=== PATIENT | male | born 1950 | race Caucasian/White ===

== ENCOUNTER → 2018-09-25 09:41 | Outpatient (CLI) | payer OTHER, SELFPAY ==
--- NOTE | 2018-09-25 | DI.CT.S_ITS ---
PROCEDURE: CT CHEST ABD PEL W CON INDICATIONS: NEOPLASM TECHNIQUE: After the administration of oral and intravenous contrast, 5 mm thick sections acquired from the lung apices to the symphysis. 5 mm coronal and sagittal reformats were performed, with additional 7 mm coronal MIP reformats through the lungs. For radiation dose reduction, the following was used: automated exposure control, adjustment of mA and/or kV according to patient size. COMPARISON: None. FINDINGS: Image quality: Excellent. CHEST: Lungs and pleura: No acute airspace opacities. No pleural effusions or pneumothorax. Central and peripheral airways appear patent and normal in caliber. Mediastinum: Heart size is normal. No pericardial effusion. No mediastinal or hilar adenopathy by size criteria. Thoracic aorta and central pulmonary arteries are normal in size. Esophagus is normal in caliber. No hiatal hernia. Chest wall: No axillary or supraclavicular adenopathy by size criteria. Thyroid gland appears normal. ABDOMEN: Solid organs: Liver is normal in size and enhancement. Gallbladder appears normal. Biliary system is non dilated. Pancreas enhances normally. Spleen is normal in size and enhancement. No adrenal nodules. Kidneys demonstrate normal size and enhancement, without hydronephrosis. Peritoneum and bowel: Bowel loops demonstrate normal wall thickness and caliber. No free fluid or air. Nodes and vessels: No retroperitoneal or mesenteric adenopathy by size criteria. Aorta and inferior vena cava are normal in size. Miscellaneous: No ventral hernias. PELVIS: Genitourinary: Bladder wall thickness is normal. Miscellaneous: No inguinal hernias or adenopathy. Postsurgical changes are present along the pelvic sidewalls and morphology in the prostate fossa region suggest prior total prostatectomy. No mass lesion or adjacent adenopathy is seen. Note is made of nearby sigmoid diverticulosis but without acute diverticulitis. Bones: No suspicious bony lesions. No vertebral body compression fractures. IMPRESSION: Apparent prior prostatectomy. The urinary tract visualized shows no evidence of underlying infection or neoplasm. No metastatic disease is found. Dictated by: Mike Yang M.D. on 09/25/2018 at 14:24 Approved by: Mike Yang M.D. on 09/25/2018 at 14:32
[2018-09-25 10:37] LABS: Estimated Glomerular Filt Rate > 60.0 mL/min (>60)
== END ==
PROVIDERS: Visit Provider Urology
DX: D49.59 Neoplasm of unspecified behavior of other genitourinary organ (principal)
CPT/HCPCS: 36415; 71260; 74177; 82565; Q9967

== ENCOUNTER → 2018-09-30 09:34 | Outpatient (CLI) | payer OTHER, SELFPAY ==
--- NOTE | 2018-09-30 | DI.NM.S_ITS ---
PROCEDURE: [place] BONE SCAN WHOLE BODY RADIOPHARMACEUTICAL: 19.2 mCi Tc-99m MDP IV. INDICATIONS: NEOPLASM OF OTHER GENITAL URINARY ORGANS TECHNIQUE: Delayed whole-body scintigrams were obtained approximately 3-4 hours after intravenous injection of radiotracer. Anterior and posterior views were acquired from vertex to feet. Additional left and right oblique views of the rib cage were obtained. COMPARISON: [facility], CT, CT CHEST ABD PEL W CON, 09/25/2018, 10:48. FINDINGS: There is a small focus of mildly increased uptake in the right eighth rib, correlating with CT finding of an old fracture. There is a subtle focal uptake in the right mid fibular shaft. Foci of mildly increased uptake in maxilla and mandible are present, presumably related to dental disease. No lesions are identified in skull, sternum, clavicles, scapulae, bony pelvis, and visualized shafts of the long bones. There is increased uptake in cervical, lower thoracic spine and lower lumbar spine with distribution indistinguishable from degenerative disc and facet disease; early metastasis to spine could be obscured by degenerative changes. There are foci of increased periarticular activity involving shoulders bilaterally, sternoclavicular joints bilaterally, hands bilaterally, right knee and both feet, compatible with degenerative/arthritic changes. There is normal soft tissue uptake. IMPRESSION: 1. Subtle increased uptake in the mid right fibular shaft, which may be related to old trauma. Recommend radiographic correlation. 2. Focal uptake projecting to the posterior right eighth rib correlating with an old right rib fracture seen on CT. 3. No definitive scintigraphic evidence for osseous metastatic disease. Dictated by: Demi Contreras M.D. on 09/30/2018 at 15:41 Approved by: Demi Contreras M.D. on 09/30/2018 at 16:03
== END ==
PROVIDERS: PCP Family Medicine; Visit Provider Urology
DX: D49.59 Neoplasm of unspecified behavior of other genitourinary organ (principal); Z85.46 Personal history of malignant neoplasm of prostate
CPT/HCPCS: 78306; A9503

== ENCOUNTER → 2018-10-13 11:10 | Outpatient (CLI) | payer OTHER, SELFPAY ==
--- NOTE | 2018-10-13 | DI.CT.S_ITS ---
PROCEDURE: CT HEAD/BRAIN WO CON INDICATIONS: PROSTATE CANCER TECHNIQUE: Noncontrast 4.5 mm thick angled axial sections acquired from the foramen magnum to the vertex, with coronal and sagittal reformats. For radiation dose reduction, the following was used: automated exposure control, adjustment of mA and/or kV according to patient size. COMPARISON: [place], [place], [place] BONE SCAN WHOLE BODY, 09/30/2018, 13:06. FINDINGS: Image quality: Excellent. CSF spaces: Basal cisterns are patent. No extra-axial fluid collections. The ventricles are symmetric in size and shape. Brain: No intracranial bleeds or masses. There is cerebral volume loss for age, with resultant ventricular and sulcal prominence. There are periventricular and deep white matter chronic small vessel ischemic changes. There is intracranial internal carotid artery atherosclerosis. Skull and face: In this patient with this given history, scrutiny is given to the right supraorbital region, at the site of increased radiotracer uptake seen on the recent nuclear medicine bone scan. Within the right superolateral orbital roof, there is mild sclerosis seen, which is best demonstrated on series 4 image 25. Calvarium and visualized facial bones appear intact, without suspicious lesions. Sinuses: Visualized sinuses and mastoids are clear. IMPRESSION: A mild focus of sclerosis is seen corresponding to the area of increased radiotracer uptake on the recent nuclear medicine bone scan. The patient gives an additional history of a fracture near this region and this may simply relate to a remodeling fracture, although differential diagnosis includes metastatic disease in this patient with a given history of prostate cancer. Please correlate with patient history and any relevant outside imaging through the region. Dictated by: Olivier Anderson M.D. on 10/13/2018 at 11:19 Approved by: Olivier Anderson M.D. on 10/13/2018 at 11:23
== END ==
PROVIDERS: PCP Family Medicine; Visit Provider Urology
DX: C61 Malignant neoplasm of prostate (principal)
CPT/HCPCS: 70450

== ENCOUNTER → 2020-06-25 10:07 | Outpatient (CLI) | payer OTHER, SELFPAY ==
[2020-06-25 10:52] LABS: Add Manual Diff / Slide Review NO; Basophils Absolute Auto 100 /uL (0-100); Basophils Percent Auto 0.7 % (0-2); Eosinophils Absolute Auto 100 /uL (0-450); Eosinophils Percent Auto 1.6 % (2-4); Hematocrit 41.5 % (41-53); Lymphocytes Absolute Auto 1200 /uL (1100-4500); Lymphocytes Percent Auto 15.4 % (25-40); Mean Corpuscular HGB Conc 33.8 % (30-36); Mean Corpuscular Hemoglobin 30.6 PG (26-34); Mean Corpuscular Volume 90.6 fL (80-100); Monocytes Absolute Auto 1100 /uL (0-900); Monocytes Percent Auto 13.5 % (3-14); Neutrophils Absolute Auto 5400 /uL (1500-7000); Neutrophils Percent Auto 68.8 % (50-75); Platelet Count 225 X10^3/uL (150-400); Red Blood Cell Count 4.58 X10^6/uL (4.5-5.9); Red Cell Distribution Width 14.1 % (11.6-14.8); White Blood Cell Count 7.9 X10^3/uL (4.5-11.0)
[2020-06-25 11:01] LABS: Alanine Aminotransferase 32 IU/L (<50); Albumin 4.4 g/dL (3.5-5.0); Albumin Globulin Ratio 1.3 (1.0-2.8); Alkaline Phosphatase 84 U/L (38-126); Aspartate Aminotransferase 37 IU/L (17-59); BUN Creatinine Ratio 15.4 (6-22); Bilirubin Total 0.6 mg/dL (0.2-1.3); Blood Urea Nitrogen 20 mg/dL (9-20); Calcium 9.6 mg/dL (8.4-10.2); Carbon Dioxide 24 mmol/L (22-32); Chloride 105 mmol/L (98-107); Estimated Glomerular Filt Rate 54.7 mL/min (>60); Globulin 3.3 g/dL (1.7-4.1); Glucose 97 mg/dL (80-110); HEMOLYSIS < 15 (0-50); Potassium 3.9 mmol/L (3.4-5.1); Sodium 137 mmol/L (137-145); Total Protein 7.7 g/dL (6.3-8.2)
[2020-06-25 11:35] LABS: Prostate Specific Antigen 4.99 ng/mL (0.10-4.00)
== END ==
PROVIDERS: PCP Family Medicine; Referring Provider Internal Medicine Hematology & Oncology; Visit Provider Internal Medicine Hematology & Oncology
DX: C61 Malignant neoplasm of prostate (principal)
CPT/HCPCS: 36415; 80053; 84153; 85025

== ENCOUNTER → 2020-12-31 12:12 | Outpatient (CLI) | payer OTHER, SELFPAY ==
--- NOTE | 2020-12-31 | DI.RAD.S_ITS ---
PROCEDURE: XR CHEST 2V INDICATIONS: J45.991, cough variant asthma TECHNIQUE: 2 views of the chest were acquired. COMPARISON: [facility], CT, CT CHEST ABD PEL W CON, 09/25/2018, 10:48. FINDINGS: Surgical changes and devices: None. Lungs and pleura: Lungs are clear. No pleural effusions or pneumothorax. Mediastinum: Mediastinal contours are normal. Heart size is normal. Bones and chest wall: No suspicious bony abnormalities. Soft tissues appear unremarkable. IMPRESSION: Unremarkable chest plain films, with no focal infiltrates seen. Dictated by: Olivier Anderson M.D. on 12/31/2020 at 12:49 Approved by: Olivier Anderson M.D. on 12/31/2020 at 12:50
== END ==
PROVIDERS: PCP Family Medicine; Referring Provider Family Medicine; Visit Provider Family Medicine
DX: J45.991 Cough variant asthma (principal)
CPT/HCPCS: 71046

== ENCOUNTER → 2021-06-07 10:44 | Outpatient (CLI) | payer OTHER, SELFPAY ==
--- NOTE | 2021-06-07 11:11 | DI.CT.S_ITS ---
PROCEDURE: CT ABDOMEN PELVIS W CON INDICATIONS: prostate cancer TECHNIQUE: After the administration of oral and intravenous contrast, axial sections were acquired from the lung bases to the pubic symphysis. Coronal and sagittal reformats were performed. For radiation dose reduction, the following was used: automated exposure control, adjustment of mA and/or kV according to patient size. COMPARISON:None. FINDINGS: Image quality: Excellent. Lung bases: Lung bases are clear. Heart size is normal. Solid organs: Liver: The liver has no mass or intrahepatic biliary ductal dilatation. The portal vein and hepatic veins are patent. Biliary: The gallbladder has no gallstones, pericholecystic fluid, gallbladder wall thickening, or surrounding inflammatory change. Pancreas: The pancreas has no mass or ductal dilatation. There is no surrounding inflammation. Spleen: Normal size. There are no masses. Adrenals: No hypertrophy or nodules. Kidneys: No obstructive calculus or hydronephrosis. No solid mass. No cystic mass. Peritoneum and bowel: There is a small hiatal hernia. The distal esophagus and stomach are normal. The small bowel has a normal caliber and appearance. The terminal ileum is normal. The large bowel has diverticulosis with no evidence of diverticulitis. The appendix is normal. No free fluid or air. Nodes and vessels: No retroperitoneal or mesenteric adenopathy by size criteria. The aorta has atherosclerosis with no aneurysmal dilatation. Miscellaneous: No abdominal wall mass or hernia. PELVIS: Genitourinary: The bladder has no wall thickening or mass. Status post prostatectomy. There are surgical clips in the pelvis. 1 of the surgical clips is between the bladder in the base of the penis where the patient reports a sharp pain. No evidence of local recurrence disease in the pelvis. Miscellaneous: No inguinal hernias or adenopathy. Bones: Degenerative changes of L4-5 and L5-S1. 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 No vertebral body compression fractures. IMPRESSION: 1. Postoperative changes of prostatectomy with no evidence of locally recurrent neoplasm. 2. No osseous metastatic disease identified. Consider bone scan. Dictated by: Anthony Rosales M.D. on 06/07/2021 at 12:46 Approved by: Anthony Rosales M.D. on 06/07/2021 at 12:56
== END ==
PROVIDERS: PCP Family Medicine; Referring Provider Internal Medicine Hematology & Oncology; Visit Provider Internal Medicine Hematology & Oncology
DX: C61 Malignant neoplasm of prostate (principal); K44.9 Diaphragmatic hernia without obstruction or gangrene; M47.816 Spondylosis without myelopathy or radiculopathy, lumbar region; M47.817 Spondylosis without myelopathy or radiculopathy, lumbosacral region; M43.17 Spondylolisthesis, lumbosacral region
CPT/HCPCS: 74177

== ENCOUNTER → 2021-06-29 12:48 | Outpatient (CLI) | payer OTHER, SELFPAY ==
--- NOTE | 2021-06-29 12:51 | DI.NM.S_ITS ---
PROCEDURE: [place] BONE SCAN WHOLE BODY RADIOPHARMACEUTICAL: 20.3 mCi Tc-99m MDP IV. INDICATIONS: prostat cancer, pelvic pain TECHNIQUE: Delayed whole-body scintigrams were obtained approximately 3-4 hours after intravenous injection of radiotracer. Anterior and posterior views were acquired from vertex to feet. COMPARISON: [facility], CT, CT HEAD/BRAIN WO CON, 10/13/2018, 11:27. [facility], [place], [place] BONE SCAN WHOLE BODY, 09/30/2018, 13:06. [facility], MR, MR PELVIS WO/W CON, 06/29/2021, 14:46. [facility], CT, CT ABDOMEN PELVIS W CON, 06/07/2021, 11:43. FINDINGS: There is increased uptake inferior to the left orbit, new. Mildly increased uptake is also seen in the area superior right orbit, unchanged. Increased activity in the maxilla and mandible is likely related to dental disease. No lesions are identified in calvarium, sternum, clavicles, scapulae, ribs, bony pelvis, and visualized shafts of the long bones. There is low level increased uptake in cervical, thoracic and lumbar spine with distribution indistinguishable from degenerative disc and facet disease; early metastasis to spine could be obscured by degenerative changes. Multiple foci of increased uptake are seen at the costovertebral junctions bilaterally, likely related to costovertebral arthritis. IMPRESSION: 1. There is increased uptake in the inferior to the left orbit, new since the last exam. Recommend radiographic correlation. 2. Elsewhere, no definitive scintigraphic findings to suggest osseous metastasis. Dictated by: Demi Contreras M.D. on 06/29/2021 at 17:11 Approved by: Demi Contreras M.D. on 06/29/2021 at 17:26
--- NOTE | 2021-06-29 14:01 | DI.MRI.S_ITS ---
PROCEDURE: MR PELIS WO/W CON INDICATIONS: pelvic pain TECHNIQUE: Coronal HASTE, axial T1 FSE with fat saturation, 3-plane nonbreath-hold T2 FSE. After the administration of contrast, dynamic axial, delayed axial and coronal VIBE or 2-D FLASH with fat saturation through the pelvis. Optional diffusion weighted imaging and ADC may be performed. COMPARISON: [facility], CT, CT ABDOMEN PELVIS W CON, 06/07/2021, 11:43. [facility], [place], [place] BONE SCAN WHOLE BODY, 09/30/2018, 13:06. FINDINGS: Image quality: Diffusion weighted and dynamic contrast enhanced images are diagnostic. Prostate: Surgically absent. Susceptibility artifact. No mass seen. Genitourinary system: Urinary bladder has a trabeculated appearance. Small bladder diverticuli at the dome. Distal ureters are non distended. Bilateral hydroceles. Bowel and peritoneum: No pathologic free pelvic fluid. Inferior colon and small bowel loops are normal in caliber. Diverticulosis. Nodes and vessels: No pelvic or inguinal adenopathy by size criteria. Iliac vessels are normal in caliber. Soft tissues: No inguinal hernias. Nonenhancing cyst in the left gluteus musculature, (33/71). Bones: No metastatic lesions identified. Please see pending nuclear medicine bone scan. IMPRESSION: 1. Prostatectomy. No recurrent disease demonstrated. No enlarged lymph nodes seen. Please see pending nuclear medicine bone scan. 2. Diverticulosis. No free fluid. Dictated by: Zackary Powers M.D. on 06/29/2021 at 15:43 Approved by: Zackary Powers M.D. on 06/29/2021 at 15:54
== END ==
PROVIDERS: PCP Family Medicine; Referring Provider Internal Medicine Hematology & Oncology; Visit Provider Internal Medicine Hematology & Oncology
DX: C61 Malignant neoplasm of prostate (principal); R10.2 Pelvic and perineal pain; K57.90 Diverticulosis of intestine, part unspecified, without perforation or abscess without bleeding
CPT/HCPCS: 72197; 78306; A9503

== ENCOUNTER → 2021-07-20 07:46 | Outpatient (CLI) | payer OTHER, SELFPAY ==
[2021-07-20 08:16] LABS: Add Manual Diff / Slide Review NO; Basophils Absolute Auto 100 /uL (0-100); Basophils Percent Auto 0.9 % (0-2); Eosinophils Absolute Auto 100 /uL (0-450); Eosinophils Percent Auto 1.4 % (2-4); Hematocrit 40.8 % (41-53); Hemoglobin 13.3 g/dL (13.5-17.5); Lymphocytes Absolute Auto 1600 /uL (1100-4500); Lymphocytes Percent Auto 25.6 % (25-40); Mean Corpuscular HGB Conc 32.7 % (30-36); Mean Corpuscular Hemoglobin 30.9 PG (26-34); Mean Corpuscular Volume 94.6 fL (80-100); Monocytes Absolute Auto 1000 /uL (0-900); Monocytes Percent Auto 15.3 % (3-14); Neutrophils Absolute Auto 3500 /uL (1500-7000); Neutrophils Percent Auto 56.8 % (50-75); Platelet Count 240 X10^3/uL (150-400); Red Blood Cell Count 4.31 X10^6/uL (4.5-5.9); Red Cell Distribution Width 13.7 % (11.6-14.8); White Blood Cell Count 6.2 X10^3/uL (4.5-11.0)
[2021-07-20 08:33] LABS: Alanine Aminotransferase 28 IU/L (<50); Albumin 4.6 g/dL (3.5-5.0); Albumin Globulin Ratio 1.5 (1.0-2.8); Alkaline Phosphatase 65 U/L (38-126); Aspartate Aminotransferase 41 IU/L (17-59); BUN Creatinine Ratio 12.4 (6-22); Bilirubin Total 0.4 mg/dL (0.2-1.3); Blood Urea Nitrogen 15 mg/dL (9-20); Calcium 9.3 mg/dL (8.4-10.2); Carbon Dioxide 23 mmol/L (22-32); Chloride 107 mmol/L (98-107); Estimated Glomerular Filt Rate 59.3 mL/min (>60); Globulin 3.1 g/dL (1.7-4.1); Glucose 90 mg/dL (80-110); HEMOLYSIS 41 (0-50); Potassium 4.1 mmol/L (3.4-5.1); Sodium 139 mmol/L (137-145); Total Protein 7.7 g/dL (6.3-8.2)
[2021-07-20 09:03] LABS: Prostate Specific Antigen 8.07 ng/mL (0.10-4.00)
[2021-07-20 12:19] LABS: Clostridium Difficile Tox PCR Negative for C. diff (Negative)
== END ==
PROVIDERS: Internal Medicine Hematology & Oncology; PCP Family Medicine; Referring Provider Urology; Visit Provider Urology
DX: R19.5 Other fecal abnormalities (principal); C61 Malignant neoplasm of prostate; R19.7 Diarrhea, unspecified
CPT/HCPCS: 36415; 80053; 84153; 85025; 87045; 87493; 87899

== ENCOUNTER → 2021-07-20 08:59 | Outpatient (CLI) | payer OTHER, SELFPAY ==
--- NOTE | 2021-07-20 09:00 | DI.CT.S_ITS ---
PROCEDURE: CT ORBIT LT WO CON INDICATIONS: prostate cancer, abdnormal bone scan inferior to left orbit TECHNIQUE: Noncontrast 2.5 mm axial images acquired through the orbits, with coronal and sagittal reformats. For radiation dose reduction, the following was used: automated exposure control, adjustment of mA and/or kV according to patient size. COMPARISON: [place], [place], CT BONE SCAN WHOLE BODY, 06/29/2021, 16:06. , CT, CT HEAD/BRAIN WO CON, 10/13/2018, 11:27. [place], [place], CT BONE SCAN WHOLE BODY, 09/30/2018, 13:06. FINDINGS: Image quality: Excellent. Orbits: Globes are symmetrical. No metallic foreign bodies. The optic nerves are normal in size. No retrobulbar masses or fat abnormalities. The extra-ocular muscles are normal and symmetrical in appearance. Lacrimal glands are normal in size. Optic chiasm is normal. Intracranial: Visualized portions of the cerebral hemispheres, brainstem, and spinal cord are normal. Bones and sinuses: Visualized calvarium and facial bones appear intact. Visualized sinuses and mastoids are clear. There is asymmetric sclerosis within the inferior right orbital wall. However, this is stable since 2018. There is a slight asymmetric osseous sclerosis along the lateral aspect of the right superior orbit which corresponds to area of increased uptake on bone scan which has been present since 2018. There is no distinct osseous or soft tissue abnormality in the inferior left orbit corresponding to recent bone scan. IMPRESSION: 1. No distinct osseous or soft tissue abnormality in the inferior left orbit corresponding to bone scan. However, given prominence on bone scan and known malignancy, MRI orbits with contrast may be helpful for further evaluation. Dictated by: Rosalia Joaquin M.D. on 07/20/2021 at 11:55 Approved by: Rosalia Joaquin M.D. on 07/20/2021 at 12:44
== END ==
PROVIDERS: PCP Family Medicine; Referring Provider Internal Medicine Hematology & Oncology; Visit Provider Internal Medicine Hematology & Oncology
DX: C61 Malignant neoplasm of prostate (principal); R94.8 Abnormal results of function studies of other organs and systems; R19.5 Other fecal abnormalities; R19.7 Diarrhea, unspecified
CPT/HCPCS: 36415; 70480; 80053; 84153; 85025; 87045; 87493; 87899

== ENCOUNTER → 2021-08-22 12:03 | Outpatient (CLI) | payer OTHER, SELFPAY ==
--- NOTE | 2021-08-22 12:05 | DI.MRI.S_ITS ---
PROCEDURE: MR ORBITS FACE NECK WO/W CON INDICATIONS: abnormal bone scan on left inferior orbit TECHNIQUE: Noncontrast sagittal T1 spin echo, axial FLAIR, axial gradient echo, axial diffusion and ADC acquired through the brain. Coronal STIR, thin-slice axial T1 spin echo through the orbits. After the administration of contrast, thin-slice axial and coronal T1 spin echo with fat saturation through the orbits, axial T1 spin echo with fat saturation through the brain. COMPARISON: [facility], CT, CT ORBIT LT WO CON, 07/20/2021, 9:18. [facility], [place], [place] BONE SCAN WHOLE BODY, 06/29/2021, 16:06. FINDINGS: Image quality: Excellent. Orbits: Postsurgical changes compatible with cataract surgery with intra-ocular lens implantation. Globes are symmetrical. The optic nerves are normal in size, without abnormal signal or enhancement. No retrobulbar masses or fat abnormalities. The extra-ocular muscles are normal and symmetric in appearance. Lacrimal glands are normal. Optic chiasm is normal. Periorbital soft tissues appear normal. CSF spaces: Ventricles are normal in size and shape. Basal cisterns are patent. No extra-axial fluid collections. Brain: No intracranial bleeds or mass effects. No abnormal intracranial enhancement. Portillo-white matter interface is intact. Diffusion weighted images demonstrate no acute ischemic insults. Pituitary gland appears normal, without sellar or suprasellar masses. Brainstem appears normal. Normal intravascular flow voids are present. Dural sinuses demonstrate normal postcontrast enhancement. Skull and face: Calvarial marrow is normal in signal. Sinuses: Sinuses and mastoids are clear. IMPRESSION: 1. No orbit mass or inflammation. 2. No suspicious postcontrast enhancement. 3. No abnormal bone marrow signal or osseous destruction. Dictated by: Ashley Levy MD, PhD on 08/22/2021 at 17:09 Approved by: Ashley Levy MD, PhD on 08/22/2021 at 17:14
== END ==
PROVIDERS: PCP Family Medicine; Referring Provider Internal Medicine Hematology & Oncology; Visit Provider Internal Medicine Hematology & Oncology
DX: C61 Malignant neoplasm of prostate (principal); R94.8 Abnormal results of function studies of other organs and systems
CPT/HCPCS: 70543

== ENCOUNTER → 2025-07-29 12:12 | Outpatient (CLI) | payer OTHER, SELFPAY ==
--- NOTE | 2025-07-29 12:17 | DI.RAD.S_ITS ---
PROCEDURE: XR CERVICAL SPINE 2V OR 3V INDICATIONS: M54.12 TECHNIQUE: Three views (s) of the cervical spine were acquired. COMPARISON: None. FINDINGS: Cervical spine curvature and alignment: Straightening lordotic curve suggesting muscle spasm Bones: There are no osseous abnormalities. Disc spaces: Mild C4-5, severe C5-6 and C6-7 degenerative disc disease . Severe C2-3 C3-4 C4-5 and moderate C5-6 C7-T1 C4-5 and moderate C5-6 and C6-7 degenerative facet disease Soft tissues: Small ossifications in the nuchal ligament region at 5 6 level appreciated. Moderate atherosclerotic calcification Moderate calcification in the left carotid bifurcation Moderate atherosclerotic calcification in the carotid bifurcations IMPRESSION: Degeneration. Straightening lordotic curve suggesting muscle spasm. Anti spasmodic may be therapeutic Moderate atherosclerotic calcification carotid artery bifurcation. Consider carotid Doppler study to evaluate for stenosis Dictated by: Umang Garcia M.D. on 07/30/2025 at 6:46 Approved by: Umang Garcia M.D. on 07/30/2025 at 6:49
== END ==
LOC: RAD 12:14
PROVIDERS: PCP Family Medicine; Referring Provider Family Medicine; Visit Provider Family Medicine
DX: M47.22 Other spondylosis with radiculopathy, cervical region (principal); M50.11 Cervical disc disorder with radiculopathy, high cervical region; I65.29 Occlusion and stenosis of unspecified carotid artery
CPT/HCPCS: 72040